=== PATIENT | male | born 1965 | race Caucasian/White ===

== ENCOUNTER 2018-02-18 19:42 | Emergency (ER) | payer BC ==
--- NOTE | 2018-02-18 20:41 | EDM.PDOC ---
ED HPI GENERAL MEDICAL PROBLEM - General Chief Complaint: Lower Extremity Injury/Pain Stated Complaint: RT KNEE PAIN Time Seen by Provider: 02/18/18 20:14 Source of Information: Reports: Patient, Family () History Limitations: Reports: No Limitations - History of Present Illness INITIAL COMMENTS - FREE TEXT/NARRATIVE: right knee pain since Monday, drove up from [place] yesterday, increasing pain in right knee. Concerns of blood clot because had a blood clot in right foot in Mar 2017, right lower leg 2016, was taking Xarelto for DVT, stopped in September 2017. was instructed to take a daily baby aspirin, but due to Colitis. medical; Remicade infusion every 6 weeks for Ulcerative Colitis and Azecal bid Onset: Gradual Onset Date: 02/13/18 Duration: Constant (increased pain with walking), Getting Worse Location: Reports: Lower Extremity, Right Quality: Reports: Ache Severity: Moderate Improves with: Reports: Rest Worsens with: Reports: Movement Context: Reports: Other (hx of DVT x 2) Associated Symptoms: Reports: No Other Symptoms knee Pain Score (Numeric/FACES): 8 - Related Data Allergies Allergy/AdvReac Type Severity Reaction Status Date / Time azathioprine [From Imuran] Allergy Pain Verified 02/18/18 20:09 Home Meds: Home Meds InFLIXimab [Remicade] 100 mg PO ASDIRECTED 02/18/18 [History] Mesalamine [Asacol Hd] 2,400 mg PO BID 02/18/18 [History] Past Medical History Cardiovascular History: Reports: Blood Clots/VTE/DVT Respiratory History: Reports: Sleep Apnea, Other (See Below) Other Respiratory History: histoplasmosis Gastrointestinal History: Reports: Pancreatitis, Other (See Below) Other Gastrointestinal History: ulcertive cholitis - Past Surgical History GI Surgical History: Reports: Cholecystectomy, Colonoscopy Musculoskeletal Surgical History: Reports: Hip Replacement, Other (See Below) Other Musculoskeletal Surgeries/Procedures:: hip revision Social & Family History - Family History Other Hematologic Family History: factor V - Tobacco Use Smoking Status *Q: Never Smoker - Caffeine Use Caffeine Use: Reports: Coffee, Soda - Recreational Drug Use Recreational Drug Use: No - Living Situation & Occupation Living situation: Reports: (lives in [place] with and family. Here on vacation.) Occupation: Employed Review of Systems - Review of Systems Review Of Systems: See Below Constitutional: Reports: No Symptoms Eyes: Reports: No Symptoms Ears: Reports: No Symptoms Nose: Reports: No Symptoms Mouth/Throat: Reports: No Symptoms Respiratory: Reports: No Symptoms Cardiovascular: Reports: No Symptoms GI/Abdominal: Reports: No Symptoms Genitourinary: Reports: No Symptoms Musculoskeletal: Reports: Leg Pain (right leg), Joint Pain (right knee) Skin: Reports: Other (left leg with chronic venous stasis ulcers from a previous DVT) Neurological: Reports: No Symptoms Psychiatric: Reports: No Symptoms ED EXAM, GENERAL - Physical Exam Exam: See Below Exam Limited By: No Limitations General Appearance: Alert, WD/WN, No Apparent Distress Throat/Mouth: Normal Inspection, Normal Lips, Normal Teeth, Normal Gums, Normal Voice Head: Atraumatic, Normocephalic Neck: Normal Inspection, Supple, Non-Tender, Full Range of Motion Respiratory/Chest: No Respiratory Distress, Lungs Clear, Normal Breath Sounds, No Accessory Muscle Use, Chest Non-Tender Cardiovascular: Normal Peripheral Pulses, Regular Rate, Rhythm, No Edema, No Gallop, No JVD, No Murmur, No Rub Peripheral Pulses: 2+: Radial (L), Radial (R), Posterior Tibial (L), Posterior Tibial (R) GI/Abdominal: Normal Bowel Sounds, Soft, Non-Tender (Male) Exam: Deferred Rectal (Males) Exam: Deferred Back Exam: Normal Inspection Extremities: Leg Pain (right knee pain with palpation of anterior knee.), Limited Range of Motion (due to pain). No: Breana's Sign (negative bilateral lower legs.) Neurological: Alert, Oriented, CN II-XII Intact, Normal Cognition, Normal Reflexes Psychiatric: Normal Affect, Normal Mood Skin Exam: Warm, Dry, Intact, Ecchymosis Lymphatic: No Adenopathy Course - Vital Signs Last Recorded V/S: Last Vital Signs Temp 36.8 C 02/18/18 20:07 Pulse 76 02/18/18 20:07 Resp 16 02/18/18 20:07 BP 125/69 02/18/18 20:07 Pulse Ox 96 02/18/18 20:07 - Orders/Labs/Meds Orders: Active Orders 24 hr Category Date Time Status Knee 3V Rt [CR] Stat Exams 02/18/18 20:29 Taken VL Duplex Lwr Ext Veins Comp [US] Stat Exams 02/18/18 20:19 Taken DME for Discharge [COMM] Urgent Oth 02/18/18 21:53 Ordered - Re-Assessments/Exams Free Text/Narrative Re-Assessment/Exam: 02/18/18 20:49 -order right knee xray to rule any arthritic changes -ultrasound bilateral lower legs to rule out DVT. past hx of bilateral DVT, last Mar 2017 02/18/18 20:50 Mr and Mrs. Kwan agree with plan of care. 02/18/18 21:56 bilateral doppler ultrasound of legs are negative for DVT xray of right knee is has mild djd , no acute bony injury. will plan to discharge to home. giorgio wrap. medicate for pain. given Orthopedic card to schedule appt for follow up rtc or er if not improved or sx worsen Departure - Departure Time of Disposition: 21:59 Disposition: Home, Self-Care 01 Condition: Good Clinical Impression: Right knee DJD Qualifiers: Osteoarthritis type: primary Qualified Code(s): M17.11 - Unilateral primary osteoarthritis, right knee Strain of knee and leg, right Qualifiers: Encounter type: initial encounter Qualified Code(s): S86.911A - Strain of unspecified muscle(s) and tendon(s) at lower leg level, right leg, initial encounter - Discharge Information Instructions: Osteoarthritis, Knee Sprain, Adult, [id number], How to Use a Knee Immobilizer, [id number] Referrals: PCP,None [Primary Care Provider] - Forms: ED Department Discharge Care Plan Goals: right knee strain, degenerative joint disease -[place] 5-325mg by mouth ecery 4 to 6 hours as needed for pain -may take over the counter Motrin or Tylenol for pain -giorgio wrap knee for 3 days then increase activities as tolerated -rest, avoid any high impact activities -apply ice to painful area as needed -card for Orthopedics, if not improving. return to Clinic or ER if not improved or symptoms worse Ultrasound of bilateral legs to rule out DVT are negative. - Problem List & Annotations (1) Right knee DJD SNOMED Code(s): 093883223051976 Code(s): M17.11 - UNILATERAL PRIMARY OSTEOARTHRITIS, RIGHT KNEE Status: Acute Qualifiers: Osteoarthritis type: primary Qualified Code(s): M17.11 - Unilateral primary osteoarthritis, right knee (2) Strain of knee and leg, right SNOMED Code(s): 391819310 Code(s): S86.911A - STRAIN OF UNSP MUSC/TEND AT LOWER LEG LEVEL, RIGHT LEG, INIT Status: Acute Priority: Medium Qualifiers: Encounter type: initial encounter Qualified Code(s): S86.911A - Strain of unspecified muscle(s) and tendon(s) at lower leg level, right leg, initial encounter - Problem List Review Problem List Initiated/Reviewed/Updated: Yes - My Orders Last 24 Hours: My Active Orders 02/18/18 20:19 VL Duplex Lwr Ext Veins Comp [US] Stat 02/18/18 20:29 Knee 3V Rt [CR] Stat 02/18/18 21:53 DME for Discharge [COMM] Urgent - Assessment/Plan Last 24 Hours: My Active Orders 02/18/18 20:19 VL Duplex Lwr Ext Veins Comp [US] Stat 02/18/18 20:29 Knee 3V Rt [CR] Stat 02/18/18 21:53 DME for Discharge [COMM] Urgent Plan: right knee strain, degenerative joint disease -[place] 5-325mg by mouth ecery 4 to 6 hours as needed for pain -may take over the counter Motrin or Tylenol for pain -giorgio wrap knee for 3 days then increase activities as tolerated -rest, avoid any high impact activities -apply ice to painful area as needed -card for Orthopedics, if not improving. return to Clinic or ER if not improved or symptoms worse Ultrasound of bilateral legs to rule out DVT are negative.
--- NOTE | 2018-02-19 09:29 | US ---
VL Duplex Lwr Ext Veins Comp CLINICAL HISTORY: Lower extremity pain FINDINGS: Real-time and Doppler images from the common femoral vein downward to the calf veins show n o filling defects. All veins are compressible. There is augmentation. There is normal phasicity. IMPRESSION: Bilateral lower extremity venous Doppler study is negative for DVT
--- NOTE | 2018-02-19 09:31 | CR ---
Knee 3V Rt CLINICAL HISTORY: Pain FINDINGS: No acute fracture or dislocation is noted. There are no osseous lesions. Articular surfaces are smooth. There is some patellar spurring. Impression: Mild patellar spurring No fracture
== END 2018-02-18 22:11 | disposition home or self-care (01) ==
LOC: JP.ED 19:42
DX: S86.911A Strain of unspecified muscle(s) and tendon(s) at lower leg level, right leg, initial encounter (principal); M17.11 Unilateral primary osteoarthritis, right knee; Z88.8 Allergy status to other drugs, medicaments and biological substances; X58.XXXA Exposure to other specified factors, initial encounter
CPT/HCPCS: 73562-26-RT; 73562-RT; 93970; 93970-26; 99284-25